=== PATIENT | male | born 1990 | race Caucasian/White ===

== ENCOUNTER 2017-05-13 17:35 | Emergency (ER) | payer OTHER, BC ==
[~2017-05-13] VITALS: Ht 172.7 cm; Wt 68.0 kg
[~2017-05-13 17:35] MED LIST: BACTROBAN22 GM TOP; IBUPROFEN600 MG PO; KEFLEX500 MG PO
== END 2017-05-13 20:13 | disposition home or self-care (01) ==
LOC: ED 17:35
DX: S49.92XA Unspecified injury of left shoulder and upper arm, initial encounter (principal); J45.909 Unspecified asthma, uncomplicated; X50.0XXA Overexertion from strenuous movement or load, initial encounter; Y99.0 Civilian activity done for income or pay
CPT/HCPCS: 73080; 99283

== ENCOUNTER 2017-09-22 09:42 | Emergency (ER) | payer BC ==
[~2017-09-22] VITALS: Ht 172.7 cm; Wt 68.0 kg
== END 2017-09-22 10:00 | disposition home or self-care (01) ==
LOC: ED 09:42
DX: S61.412A Laceration without foreign body of left hand, initial encounter (principal); W45.8XXA Other foreign body or object entering through skin, initial encounter

== ENCOUNTER 2022-07-07 10:40 | Emergency (ER) | payer OTHER ==
[~2022-07-07] VITALS: Ht 172.7 cm; Wt 78.3 kg
--- OUTSIDE RECORDS SUMMARY | 2022-07-07 10:48 | XMS ---
PreManage Notification: TRACI JUAREZ Security Legal Administrative Secretary Events No recent Security Events currently on file CRITERIA MET - Group Notification CARE PROVIDERS There are no care providers on record at this time. Ehsan has no Care Guidelines for this patient. Nilay VISIT COUNT (12 MO.) 1 CYDNEY Diaz TOTAL 1 NOTE: Visits indicate total known visits. ED/C VISIT TRACKING (12 MO.) 07/07/2022 10:41 CYDNEY [facility] [place] TYPE: Emergency COMPLAINT: - COLD SYMPTOMS, FEVER, CHILLS, COUGH, BODY ACHES INPATIENT VISIT TRACKING (12 MO.) No inpatient visits to display in this time frame [email or web address]
== END 2022-07-07 12:48 | disposition home or self-care (01) ==
LOC: ED 10:40
DX: J10.1 Influenza due to other identified influenza virus with other respiratory manifestations (principal); J45.909 Unspecified asthma, uncomplicated; Z20.822 Contact with and (suspected) exposure to COVID-19
CPT/HCPCS: 87502; 99283; C9803; U0003

== ENCOUNTER 2024-12-03 11:17 | Emergency (ER) | payer OTHER ==
[~2024-12-03] VITALS: Ht 172.7 cm; Wt 77.0 kg
--- OUTSIDE RECORDS SUMMARY | 2024-12-03 11:23 | XMS ---
PreManage Notification: TRACI JUAREZ Security Child Day Care Provider Events No recent Security Events currently on file CRITERIA MET - Group Notification CARE PROVIDERS -[facility]: Dental Current Dental PHONE: [phone] -Judy DDS Dentist Current PHONE: [phone] RAN FAITH Nurse Practitioner: Family Current PHONE: Unknown Ehsan has no Care Guidelines for this patient. EIram VISIT COUNT (12 MO.) 1 CYDNEY Diaz TOTAL 1 NOTE: Visits indicate total known visits. ED/UCC VISIT TRACKING (12 MO.) 12/03/2024 11:18 CYDNEY [facility] [place] TYPE: Emergency COMPLAINT: - FLANK PAIN INPATIENT VISIT TRACKING (12 MO.) No inpatient visits to display in this time frame [id number]
[2024-12-03] MEDS ORDERED: ondansetron HCL 4 MG/2 ML VIAL IV PRN (11:30)
[2024-12-03] MEDS ORDERED: KETOROLAC TROMETHAMINE 15 MG/ML VIAL IV ONE (11:30)
[2024-12-03 11:49] LABS: BASOPHILS 0.4 % (0-2); EOSINOPHILS 1.8 % (0-6); HEMOGLOBIN 16.9 g/dL (12.0-18.0); LYMPHOCYTES 29.1 % (24-44); MCH 33.2 (27-36); MCHC 35.2 g/dl (30-36); MCV 94.3 fl (81-99); MONOCYTES 4.7 % (0-12); PLATELET COUNT 188 K/uL (140-440); RBC 5.09 M/ul (4.3-5.7); RDW 13.8 (10.5-15.0)
[2024-12-03 12:05] LABS: ALBUMIN/GLOBULIN RATIO 1.29 (1.1-2.4); ANION GAP 13.8 (7-21); BILIRUBIN, TOTAL 1.5 mg/dL (0.2-1.0); CALCIUM 8.7 mg/dL (8.5-10.1); CREATININE, SERUM 1.57 mg/dL (0.70-1.30); POTASSIUM 3.8 mmol/L (3.5-5.1); PROTEIN, TOTAL 7.1 g/dL (6.4-8.2)
[2024-12-03 12:20] LABS: BILIRUBIN, URINE POSITIVE (negative); BLOOD/HGB, URINE LARGE (Negative); KETONE, URINE NEGATIVE (Negative); LEUK ESTERASE, URINE NEGATIVE (negative); NITRITE, URINE NEGATIVE (negative)
[2024-12-03 12:29] LABS: RED BLOOD CELLS, URINE 41-50 /hpf (0-5); WHITE BLOOD CELLS, URINE 0-1 /HPF (0-5)
[2024-12-03 12:30] LABS: BACTERIA, URINE NONE SEEN /hpf (negative); CASTS, URINE NONE SEEN \\lpf; COLLECTION TYPE, URINE CLEAN CATCH; CRYSTALS, URINE NONE SEEN (0-1+); EPITHELIAL CELLS, URINE 0 /lpf (0-1+); REFLEX CULTURE, URINE No (No)
[2024-12-03] MEDS ORDERED: ONDANSETRON ODT4 MG PO (13:28)
[2024-12-03] MEDS ORDERED: IBU600 MG PO (13:28)
[2024-12-03] MEDS ORDERED: HYDROCODON-ACE1 EA10 PO (13:28)
[2024-12-03 13:40] VITALS: BP 126/97
== END 2024-12-03 13:40 | disposition home or self-care (01) ==
LOC: ED 11:17
PROVIDERS: Emergency Medicine
DX: N21.1 Calculus in urethra (principal); J45.909 Unspecified asthma, uncomplicated
CPT/HCPCS: 36415; 74176; 80053; 81001; 85025; 96374; 99284-25; J1885